=== PATIENT | female | born 2005 | race Caucasian/White ===

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

== ENCOUNTER 2023-04-22 14:47 | Emergency (ER) | payer BC, MEDICAID, SELFPAY ==
--- NOTE | ~2023-04-22 | XR_ITS ---
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 RESULT: Lines, tubes, and devices: None. Lungs and pleura: Clear. Cardiomediastinal silhouette: Stable. Other: No acute osseous or upper abdominal finding. IMPRESSION: No acute cardiopulmonary process. Reviewed, dictated and finalized at location K. [employer]
[2023-04-22 14:51] VITALS: BP 143/79; PULSE 136; RESP 20; TEMP 37.9; O2SAT 96
[2023-04-22 15:44] LABS: Influenza A QL RT-PCR Negative (Negative); Influenza B QL RT-PCR Positive (Negative); RSV RNA, RT-PCR Negative (Negative); SARS-CoV-2 RNA PCR Negative (Negative)
--- NOTE | 2023-04-22 15:50 | ED.URI ---
HPI - URI/Sore Throat General Chief Complaint: Upper Respiratory Infection Stated Complaint: uri Time Seen by Provider: 04/22/23 15:48 Source: patient Mode of arrival: ambulatory Limitations: no limitations History of Present Illness HPI Narrative: 17 years old white female drove herself to the emergency room complaining of cold symptoms started yesterday including runny nose, coughing, sore throat. Related Data Home Medications Medication Instructions Recorded Confirmed propranolol 10 mg tablet 06/28/20 dicyclomine 20 mg tablet mg 12/16/20 ondansetron 4 mg disintegrating 12/16/20 tablet Allergies Allergy/AdvReac Type Severity Reaction Status Date / Time No Known Allergies Allergy Verified 04/22/23 16:08 Review of Systems Review of Systems: All systems reviewed & are unremarkable except as noted in HPI and below PMFSH Past Medical History Medical History Depression Nonalcoholic fatty liver disease PTSD (post-traumatic stress disorder) Surgical History Surgical History History of removal of ovarian cyst Social History Social History Smoking status: Never smoker Alcohol intake: unknown Substance use: unknown Substance use type: does not use Gender identity (if verbalized by the patient): Female Spiritual care concerns: No Exam Narrative: General appearance: Well-developed, well-nourished Skin: Normal color Head: Normocephalic, nontraumatic Eyes: Clear conjunctiva ENT: Oropharynx erythema Neck: Supple, nontender Chest and respiratory: Airway patent, no respiratory distress, no accessory muscle use Heart: Tachycardia Abdomen: Soft, nontender, no organomegaly, quiet bowel sounds Vascular: Normal peripheral pulses, normal capillary refill. Musculoskeletal: Normal range of motion, nontender back Neurologic: Alert and oriented ?3, [facility] [employer] is normal as tested, no gross motor deficit Course Vital Signs Vital signs: Vital Signs Temperature 37.9 C H 04/22/23 14:51 Pulse Rate 136 H 04/22/23 14:51 Respiratory Rate 20 04/22/23 14:51 Blood Pressure 143/79 H 04/22/23 14:51 Pulse Oximetry 96 04/22/23 14:51 Oxygen Delivery Room Air 04/22/23 14:51 Temperature 37.9 C H 04/22/23 14:51 Pulse Rate 132 H 04/22/23 16:05 Respiratory Rate 26 H 04/22/23 16:05 Blood Pressure 113/68 04/22/23 16:05 Pulse Oximetry 95 04/22/23 16:06 Oxygen Delivery Room Air 04/22/23 16:06 MDM - URI/Sore Throat MDM Narrative Medical decision making narrative: Patient presents with cold symptoms, tested positive for influenza B, Tamiflu ordered The ED patient received ibuprofen and Tylenol prior to discharge and 3 days excuse of work Differential Diagnosis Differential diagnosis: Likely upper respiratory infection, viral infection, influenza and pharyngitis Lab Data Labs: Lab Results 04/22/23 Range/Units 14:56 Influenza A (RT-PCR) Negative (Negative) Influenza B (RT-PCR) Positive A (Negative) RSV (RT-PCR) Negative (Negative) SARS-CoV-2 RNA (RT-PCR) Negative (Negative) Discharge Plan Discharge Clinical Impression: Influenza B Patient Disposition: Home, Self-Care Condition: Stable Instructions: Influenza (ED) Additional Instructions: Return if symptoms are worsening , call your family physician for appointment, take Tylenol as as needed for aches and pain, continue home medications. Off work 3 days Prescriptions: New oseltamivir [Tamiflu] 75 mg capsule 75 mg PO Q12H 5 Days Qty: 10
[2023-04-22 16:05] VITALS: BP 113/68; PULSE 132; RESP 26; O2SAT 95
[2023-04-22 16:06] VITALS: O2SAT 95
[2023-04-22] MEDS: ACETAMINOPHEN 325 MG TABLET 650 MG PO (16:23)
[2023-04-22] MEDS: IBUPROFEN 600 MG TABLET PO (16:23)
== END 2023-04-22 17:01 | disposition home or self-care (01) ==
PROVIDERS: Emergency Medicine; Emergency Provider Emergency Medicine; PCP Family Medicine Sports Medicine
DX: J10.1 Influenza due to other identified influenza virus with other respiratory manifestations (principal); Z20.822 Contact with and (suspected) exposure to COVID-19; F32.A Depression, unspecified
CPT/HCPCS: 71045; 87637; 99283; A9270

== ENCOUNTER 2023-07-19 07:04 | Emergency (ER) | payer BC, MEDICAID, SELFPAY ==
[2023-07-19 07:06] VITALS: BP 150/102; PULSE 96; RESP 16; TEMP 36.2; O2SAT 100
[2023-07-19 07:17] VITALS: BP 138/100; PULSE 94; RESP 20; O2SAT 98
[2023-07-19 07:29] LABS: Basophils Percent Auto 0.2 % (0.2-1.2); Eosinophils Absolute Auto 0.2 K/mm3 (0-0.3); Eosinophils Percent Auto 1.7 % (0-4.4); Hematocrit 44.2 % (37.0-47.0); Hemoglobin 15.3 g/dL (12.0-15.0); Immature Granulocyte Absolute 0.04 K/mm3 (0.00-0.031); Immature Granulocyte Percent A 0.3 % (0-0.5); Lymphocytes Absolute Auto 2.93 K/mm3 (0.9-3.2); Lymphocytes Percent Auto 22.6 % (18.3-44.2); Mean Corpuscular HGB Conc 34.6 g/dl (32-36); Mean Corpuscular Hemoglobin 30.6 pg (26-34); Mean Corpuscular Volume 88.4 fl (80-100); Mean Platelet Volume 9.6 fl (7.4-10.4); Monocytes Percent Auto 7.6 % (2.6-8.5); Neutrophils Absolute Auto 8.7 K/mm3 (1.3-6.7); Neutrophils Percent Auto 67.6 % (45.5-73.1); Platelet Count Result 369 k/mm3 (150-375); Red Cell Distribution Width 12.5 % (11.5-14.5); White Blood Count 12.9 K/mm3 (4.5-10.0)
[2023-07-19] MEDS: SODIUM CHLORIDE 0.9% IV 1,000 ML 999 ML IV CONT (07:32)
[2023-07-19] MEDS: ONDANSETRON INJ 4 MG/2 ML VIAL IV PUSH (07:32)
[2023-07-19 07:42] LABS: Alanine Aminotransferase 61 U/L (6-35); Albumin Level 4.8 g/dL (3.5-5.1); Alkaline Phosphatase 52 U/L (38-126); Anion Gap 8 mmol/L (4-12); Aspartate Amino Transferase 48 U/L (14-36); Blood Urea Nitrogen 12 mg/dL (7-17); Calcium 9.6 mg/dL (8.4-10.2); Carbon Dioxide 23 mmol/L (22-30); Chloride 105 mmol/L (98-107); Estimated CRCL calculation 140 ml/min; Estimated Glomerular Filt Rate > 60; Glucose 110 mg/dL (65-110); Lipase 114 U/L (23-300); Potassium 4.3 mmol/L (3.4-5.0); Sodium 136 mmol/L (137-145)
--- NOTE | 2023-07-19 07:42 | ED.ABDPAIN ---
HPI - Abdominal Pain General Chief Complaint: Abdominal Pain Stated Complaint: stomach pain Time Seen by Provider: 07/19/23 07:08 History of Present Illness HPI narrative: 18-year-old female presenting to the emergency department for evaluation abdominal pain. Patient does report frequent nausea and vomiting. Patient felt that the vomiting has worsened over the course of the last week. Patient states that she does have Zofran at home this is not helping. Patient does have history PTSD, depression. Patient does admit to some infrequent marijuana use. Related Data Home Medications Medication Instructions Recorded Confirmed propranolol 10 mg tablet 06/28/20 dicyclomine 20 mg tablet mg 12/16/20 ondansetron 4 mg disintegrating 12/16/20 tablet Allergies Allergy/AdvReac Type Severity Reaction Status Date / Time No Known Allergies Allergy Verified 07/19/23 07:11 Review of Systems Review of Systems: All systems reviewed & are unremarkable except as noted in HPI and below PMFSH Past Medical History Medical History Depression Nonalcoholic fatty liver disease PTSD (post-traumatic stress disorder) Surgical History Surgical History History of removal of ovarian cyst Social History Social History Smoking status: Never smoker Alcohol intake: unknown Substance use: unknown Substance use type: does not use Gender identity (if verbalized by the patient): Female Spiritual care concerns: No Exam Narrative: APPEARANCE: Well appearing, no pain, no distress, well-nourished. HEAD: normocephalic, atraumatic. EYES: PERRLA/EOMI, conjunctivae clear. NOSE: Normal no drainage EARS:TMS clear with good light reflex. THROAT: Pharynx clear, no exudate. NECK: Supple. No adenopathy, no masses. RESPIRATORY: Airway patent, respirations nonlabored. Clear to auscultation bilaterally, no rales, rhonchi, wheezing. CARDIOVASCULAR: Regular rate and rhythm without murmurs rubs or gallops. ABDOMINAL: Soft, nontender, nondistended, normal bowel sounds MUSCULOSKELETAL: Moves all extremities. Strength/ROM intact, No edema, No calf tenderness. NEURO: Alert. Cranial nerves II through XII intact. Grossly intact SKIN: Warm, dry. Normal Color Course Course Emergency Course: Patient felt improved with treatment and patient was discharged to home Vital Signs Vital signs: Vital Signs Temperature 97.2 F L 07/19/23 07:06 Pulse Rate 96 07/19/23 07:06 Respiratory Rate 16 07/19/23 07:06 Blood Pressure 150/102 H 07/19/23 07:06 Pulse Oximetry 100 07/19/23 07:06 Oxygen Delivery Room Air 07/19/23 07:06 Temperature 97.2 F L 07/19/23 07:06 Pulse Rate 84 07/19/23 09:03 Respiratory Rate 18 07/19/23 09:03 Blood Pressure 111/57 L 07/19/23 09:03 Pulse Oximetry 99 07/19/23 09:03 Oxygen Delivery Room Air 07/19/23 07:06 MDM - Abdominal Pain MDM Narrative Medical decision making narrative: 18-year-old female present to the emergency department for evaluation for persistent nausea and vomiting. Patient had no emesis in the emergency department. Patient is afebrile with a minor leukocytosis of 12.9 and stable hemoglobin of 15.3 no acute abnormalities on the patient's CMP. Patient was treated with IV fluids and Zofran and patient states that her symptoms have resolved. Patient does have a prescription for Zofran at home. Patient will be provided follow-up with GI. Patient was once again encouraged to refrain from THC use for the possibility of cannabinoid hyperemesis syndrome. All questions concerns were addressed patient was well-appearing at time of discharge. Differential Diagnosis Differential diagnosis: Likely abdominal pain, acute appendicitis, gastroenteritis and other Lab Data Attestation: I reviewed the patient's lab results. 0
[2023-07-19] MEDS: PANTOPRAZOLE SODIUM IV 40 MG VIAL IV PUSH (08:11)
[2023-07-19 09:03] VITALS: BP 111/57; PULSE 84; RESP 18; O2SAT 99
[2023-07-19 09:19] LABS: Appearance Urine Clear (Clear); Bacteria Urine None Seen /hpf; Bilirubin Urine Negative (Negative); Blood Urine Negative (Negative); Calcium Oxalate Crystals Urine Present /hpf; Color Urine Dark Yellow (Yellow); Glucose Urine UA Negative (Negative); Ketones Urine Trace mg/dL (Negative); Leukocyte Esterase Ur Negative LEU/UL (Negative); Need Manual Microscopic Reviewed; Nitrate Urine Negative (Negative); Non Pathogenic Casts 0-2; Protein Urine Trace mg/dL (Negative); Specific Grav Ur 1.029 (1.001-1.035); Squamous Epithelial Cell Urine Occasional /hpf (Few); Urobilinogen Urine 0.2 mg/dL (<2.0); WBC Urine 0-5 /hpf (0-3); pH Urine 5.5 (5.0-9.0)
[2023-07-19 09:21] LABS: Add Urine Microscopic? YES
== END 2023-07-19 09:50 | disposition home or self-care (01) ==
PROVIDERS: Emergency Provider Emergency Medicine; PCP Family Medicine Sports Medicine
DX: R11.2 Nausea with vomiting, unspecified (principal)
CPT/HCPCS: 36415; 80053; 81001; 81025; 83690; 85025; 96361; 96374; 96375; 99284; C9113; J2405; J7030

== ENCOUNTER 2023-10-09 14:19 | Emergency (ER) | payer BC, SELFPAY ==
--- NOTE | ~2023-10-09 | CT_ITS ---
EXAMINATION: CT abdomen pelvis w con DATE: 10/09/2023 16:06 INDICATION: LQ pain TECHNIQUE: Computed tomography (CT) of the abdomen and pelvis was performed with 100 mL Omnipaque-350 intravenous contrast. Automated exposure control and iterative reconstruction technique were employe d. The dose-length product was 1598.99 mGy-cm. COMPARISON: 10/14/2022. FINDINGS: Lower thorax: Unremarkable Liver: Normal. Biliary/Gallbladder: Gallbladder is normal. No bile duct dilation. Pancreas: No mass or duct dilation. Spleen: Normal. Adrenals:No mass. Kidneys: Mild right hydronephrosis. Delayed right nephrogram. Punctate nonobstructing right midpole c alcification. Normal left kidney. GI tract: No small or large bowel dilation. Normal appendix. Mesentery/Peritoneum: No ascites, mass, or free air. Retroperitoneum: No mass. Pelvis: 2 mm calcification in the distal right ureter. Normal urinary bladder, uterus, and ovaries. 2 .3 simple left ovarian cyst which requires no additional evaluation. Soft Tissues: Soft tissues and body wall unremarkable. Bones: No acute osseous finding. IMPRESSION: 2 mm distal right ureteral stone causing mild obstructive uropathy. Reviewed, dictated and finalized at location K.
[2023-10-09 14:28] VITALS: BP 157/103; PULSE 63; RESP 20; TEMP 36.7; O2SAT 99
[2023-10-09 15:15] LABS: Basophils Absolute Auto 0.1 K/mm3 (0.0-0.1); Basophils Percent Auto 0.5 % (0.2-1.2); Eosinophils Absolute Auto 0.1 K/mm3 (0-0.3); Eosinophils Percent Auto 1.3 % (0-4.4); Hematocrit 40.1 % (37.0-47.0); Hemoglobin 13.5 g/dL (12.0-15.0); Immature Granulocyte Absolute 0.04 K/mm3 (0.00-0.031); Immature Granulocyte Percent A 0.4 % (0-0.5); Lymphocytes Absolute Auto 2.19 K/mm3 (0.9-3.2); Lymphocytes Percent Auto 22.6 % (18.3-44.2); Mean Corpuscular HGB Conc 33.7 g/dl (32-36); Mean Corpuscular Hemoglobin 30.5 pg (26-34); Mean Corpuscular Volume 90.7 fl (80-100); Mean Platelet Volume 10.1 fl (7.4-10.4); Monocytes Absolute Auto 0.6 K/mm3 (0.1-0.6); Monocytes Percent Auto 6.2 % (2.6-8.5); Neutrophils Absolute Auto 6.7 K/mm3 (1.3-6.7); Platelet Count Result 323 k/mm3 (150-375); Red Blood Count 4.42 M/mm3 (4.2-5.4); Red Cell Distribution Width 12.2 % (11.5-14.5); White Blood Count 9.7 K/mm3 (4.5-10.0)
[2023-10-09 15:26] LABS: Alanine Aminotransferase 53 U/L (6-35); Albumin Level 4.6 g/dL (3.5-5.1); Alkaline Phosphatase 60 U/L (38-126); Anion Gap 8 mmol/L (4-12); Aspartate Amino Transferase 39 U/L (14-36); Bilirubin,Total 0.9 mg/dL (0.2-1.3); Blood Urea Nitrogen 7 mg/dL (7-17); Calcium 9.2 mg/dL (8.4-10.2); Carbon Dioxide 25 mmol/L (22-30); Chloride 107 mmol/L (98-107); Estimated CRCL calculation 125 ml/min; Estimated Glomerular Filt Rate > 60; Glucose 132 mg/dL (65-110); Lipase 92 U/L (23-300); Potassium 3.5 mmol/L (3.4-5.0); Sodium 140 mmol/L (137-145)
[2023-10-09 15:42] LABS: Beta HCG Quantitative < 2.39 mIU/ML
[2023-10-09 16:14] VITALS: BP 144/85; PULSE 100; RESP 17; O2SAT 95
--- NOTE | 2023-10-09 16:36 | ED.ABDPAIN ---
HPI - Abdominal Pain General Chief Complaint: Abdominal Pain Stated Complaint: ABD PAIN Time Seen by Provider: 10/09/23 16:24 History of Present Illness HPI narrative: Patient is a 18-year-old female who presents to the emergency department this evening complaining of sudden onset sharp severe right lower quadrant abdominal pain. Patient states that the pain is a 10/10 and is currently screaming and restless, refusing to answer any of our questions. Related Data Home Medications Medication Instructions Recorded Confirmed propranolol 10 mg tablet 06/28/20 dicyclomine 20 mg tablet mg 12/16/20 ondansetron 4 mg disintegrating 12/16/20 tablet Allergies Allergy/AdvReac Type Severity Reaction Status Date / Time No Known Allergies Allergy Verified 07/19/23 07:11 Review of Systems Review of Systems: All systems are reviewed and are negative unless stated otherwise in the HPI. FORMERLY [facility] Past Medical History Medical History Depression Nonalcoholic fatty liver disease PTSD (post-traumatic stress disorder) Surgical History Surgical History History of removal of ovarian cyst Social History Social History Smoking status: Never smoker Alcohol intake: unknown Substance use: unknown Substance use type: does not use Gender identity (if verbalized by the patient): Female Spiritual care concerns: No Exam Narrative: General: Alert, awake, afebrile, screaming in pain, restless, uncooperative with exam. HEENT: PERRL, no rhinorrhea, no post nasal drip, oropharynx clear. Cardiovascular: Regular rate and rhythm, no murmurs, rubs or gallops, no peripheral edema. Respiratory: Clear to auscultation bilaterally, no tachypnea, no wheezing, no rhonchi, no rubs, no respiratory distress. Abdomen: Soft, nontender, nondistended, no rebound, no guarding, no peritoneal signs. Musculoskeletal: No joint swelling or deformity, normal muscle tone. Skin: No rashes or petechia, no signs of infection.. Neurological: Alert and oriented to person, place, and time. Follows all commands. No focal deficits, speech is clear and fluent. Course Vital Signs Vital signs: Vital Signs Temperature 98.0 F 10/09/23 14:28 Pulse Rate 63 10/09/23 14:28 Respiratory Rate 20 10/09/23 14:28 Blood Pressure 157/103 H 10/09/23 14:28 Pulse Oximetry 99 10/09/23 14:28 Oxygen Delivery Room Air 10/09/23 14:28 Temperature 98.0 F 10/09/23 14:28 Pulse Rate 82 10/09/23 17:16 Respiratory Rate 16 10/09/23 17:16 Blood Pressure 144/86 H 10/09/23 17:16 Pulse Oximetry 97 10/09/23 17:16 Oxygen Delivery Room Air 10/09/23 14:28 MDM - Abdominal Pain MDM Narrative Medical decision making narrative: The patient was evaluated by myself in the emergency department. History is obtained from patient who is an independent historian and physical exam was performed. External medical records were reviewed at this time. IV was established and pertinent tests were ordered. Patient was administered 8 mg of IV morphine and 4 mg IV Zofran by EMS prior to arrival which patient states has not touch her pain. Laboratory results obtained revealing no acute process. Patient refusing to provide us with a urine sample at this time. Imaging studies obtained included CT abdomen and pelvis with IV contrast which was independently interpreted by me revealing a 2 mm right distal ureteral stone, which is pending final radiology interpretation. Differential diagnosis considerations include ovarian torsion, kidney stones, and appendicitis. Comorbidities impacting this visit include none. I have evaluated and discussed social determinants of health with the patient that could potentially impact subsequent diagnosis and treatment plans. On repeat assessment of
[2023-10-09] MEDS: fentaNYL CITRATE INJ (*CRX) 100 MCG/2 ML VIAL 25 MCG IV PUSH (16:42)
[2023-10-09 17:16] VITALS: BP 144/86; PULSE 82; RESP 16; O2SAT 97
== END 2023-10-09 17:17 | disposition home or self-care (01) ==
PROVIDERS: Emergency Provider Emergency Medicine; PCP Family Medicine Sports Medicine
DX: N13.2 Hydronephrosis with renal and ureteral calculous obstruction (principal); K76.0 Fatty (change of) liver, not elsewhere classified
CPT/HCPCS: 36415; 74177; 80053; 83690; 84702; 85025; 96374; 99284; J3010; Q9967

== ENCOUNTER 2023-10-12 16:32 | Emergency (ER) | payer BC, SELFPAY ==
--- NOTE | ~2023-10-12 | CT_ITS ---
EXAMINATION: CT abdomen pelvis w con DATE: 10/12/2023 18:01 INDICATION: Right lower quadrant abdominal pain. TECHNIQUE: Computed tomography (CT) of the abdomen and pelvis was performed with 100 mL Omnipaque 350 intravenous contrast. Automated exposure control and iterative reconstruction technique were employe d. The dose-length product was 1467.05 mGy-cm. COMPARISON: CT abdomen and pelvis 10/09/2023 FINDINGS: The visualized portions of the lung bases are clear without pneumonia or pleural effusion. The heart size is normal. No pericardial effusion. The liver, gallbladder, spleen, pancreas, adrenal glands, and left kidney are normal. There is a 1 mm stone in right kidney. There is a delayed right-s ided contrast nephrogram. There is mild hydronephrosis and hydroureter. There is a 2 mm stone in dist al right ureter. There are no dilated loops of bowel. The appendix is normal. There is no ascites. Th ere are no pathologically enlarged lymph nodes. There is mild thoracic spondylosis. IMPRESSION: 1. 2 mm stone in the distal right ureter with mild right hydronephrosis and hydroureter. 2. 1 mm nonobstructing right kidney stone. Reviewed, dictated and finalized at location E. IMPRESSION: 1. 2 mm stone in the distal right ureter with mild right hydronephrosis and hyd roureter. 2. 1 mm nonobstructing right kidney stone.
[2023-10-12 16:40] VITALS: BP 157/86; PULSE 75; RESP 20; TEMP 37; O2SAT 99
[2023-10-12 16:47] VITALS: BP 168/114; PULSE 63; RESP 16; TEMP 36.5; O2SAT 100
[2023-10-12 17:28] LABS: Basophils Absolute Auto 0.1 K/mm3 (0.0-0.1); Basophils Percent Auto 0.5 % (0.2-1.2); Eosinophils Absolute Auto 0.2 K/mm3 (0-0.3); Eosinophils Percent Auto 1.8 % (0-4.4); Hematocrit 39.7 % (37.0-47.0); Hemoglobin 13.9 g/dL (12.0-15.0); Immature Granulocyte Absolute 0.05 K/mm3 (0.00-0.031); Immature Granulocyte Percent A 0.5 % (0-0.5); Lymphocytes Percent Auto 21.7 % (18.3-44.2); Mean Corpuscular Hemoglobin 30.6 pg (26-34); Mean Corpuscular Volume 87.4 fl (80-100); Mean Platelet Volume 10.3 fl (7.4-10.4); Monocytes Absolute Auto 0.9 K/mm3 (0.1-0.6); Monocytes Percent Auto 8.5 % (2.6-8.5); Neutrophils Absolute Auto 7.4 K/mm3 (1.3-6.7); Platelet Count Result 361 k/mm3 (150-375); Red Blood Count 4.54 M/mm3 (4.2-5.4); Red Cell Distribution Width 12.3 % (11.5-14.5)
[2023-10-12 17:39] LABS: Alanine Aminotransferase 62 U/L (6-35); Albumin Level 4.9 g/dL (3.5-5.1); Alkaline Phosphatase 61 U/L (38-126); Anion Gap 11 mmol/L (4-12); Aspartate Amino Transferase 51 U/L (14-36); Bilirubin,Total 1.1 mg/dL (0.2-1.3); Blood Urea Nitrogen 10 mg/dL (7-17); Calcium 9.4 mg/dL (8.4-10.2); Carbon Dioxide 24 mmol/L (22-30); Chloride 107 mmol/L (98-107); Estimated Glomerular Filt Rate > 60; Glucose 99 mg/dL (65-110); Potassium 3.8 mmol/L (3.4-5.0); Sodium 142 mmol/L (137-145)
[2023-10-12 17:46] LABS: Appearance Urine Cloudy (Clear); Bacteria Urine 1+ /hpf; Bilirubin Urine 1+ (Negative); Blood Urine 3+ (Negative); Calcium Oxalate Crystals Urine Present /hpf; Color Urine Dark Yellow (Yellow); Glucose Urine UA Negative (Negative); Ketones Urine 1+ mg/dL (Negative); Leukocyte Esterase Ur Negative LEU/UL (Negative); Mucus Urine Present /lpf; Need Manual Microscopic Reviewed; Nitrate Urine Negative (Negative); Non Pathogenic Casts 0-2; Protein Urine 1+ mg/dL (Negative); RBC Urine >100 /hpf (0-2); Specific Grav Ur 1.033 (1.001-1.035); Squamous Epithelial Cell Urine Few /hpf (Few); WBC Urine 0-5 /hpf (0-3)
[2023-10-12 17:47] LABS: Add Urine Microscopic? YES
[2023-10-12] MEDS: ONDANSETRON INJ 4 MG/2 ML VIAL IV PUSH (18:23)
[2023-10-12] MEDS: KETOROLAC 15 MG/ML VIAL (*BKC) IV PUSH (18:23)
[2023-10-12] MEDS: SODIUM CHLORIDE 0.9% IV 1,000 ML 999 ML IV CONT ×2 (18:52→19:29)
--- NOTE | 2023-10-12 18:56 | ED.ABDPAIN ---
HPI - Abdominal Pain General Chief Complaint: Abdominal Pain Stated Complaint: kidney stone Time Seen by Provider: 10/12/23 17:04 History of Present Illness HPI narrative: Patient is a 18-year-old female who presents to the emergency department this afternoon complaining of right lower quadrant abdominal pain. Patient states that she was seen here 3 days ago for same pain and was diagnosed with a 2 mm kidney stone. Patient states that although she is taking the medications at home which have been helping a little bit, she continues to have pain. Patient also states that she has been nauseous and had had a few vomiting episodes. She denies any fevers or chills at home, and denies any dysuria. No additional symptoms or concerns at this time. Related Data Home Medications Medication Instructions Recorded Confirmed propranolol 10 mg tablet 06/28/20 dicyclomine 20 mg tablet mg 12/16/20 ondansetron 4 mg disintegrating 12/16/20 tablet Allergies Allergy/AdvReac Type Severity Reaction Status Date / Time No Known Allergies Allergy Verified 07/19/23 07:11 Review of Systems Review of Systems: All systems are reviewed and are negative unless stated otherwise in the HPI. [facility] Past Medical History Medical History Depression Nonalcoholic fatty liver disease PTSD (post-traumatic stress disorder) Surgical History Surgical History History of removal of ovarian cyst Social History Social History Smoking status: Never smoker Alcohol intake: unknown Substance use: unknown Substance use type: does not use Gender identity (if verbalized by the patient): Female Spiritual care concerns: No Exam Narrative: General: Alert, awake, afebrile, in no acute distress. HEENT: PERRL, no rhinorrhea, no post nasal drip, oropharynx clear. Cardiovascular: Regular rate and rhythm, no murmurs, rubs or gallops, no peripheral edema. Respiratory: Clear to auscultation bilaterally, no tachypnea, no wheezing, no rhonchi, no rubs, no respiratory distress. Abdomen: Soft, nontender, nondistended, no rebound, no guarding, no peritoneal signs. Musculoskeletal: No joint swelling or deformity, normal muscle tone. Skin: No rashes or petechia, no signs of infection. Neurological: Alert and oriented to person, place, and time. Follows all commands. No focal deficits, speech is clear and fluent. Course Vital Signs Vital signs: Vital Signs Temperature 98.6 F 10/12/23 16:40 Pulse Rate 75 10/12/23 16:40 Respiratory Rate 20 10/12/23 16:40 Blood Pressure 157/86 H 10/12/23 16:40 Pulse Oximetry 99 10/12/23 16:40 Temperature 97.7 F 10/12/23 16:47 Pulse Rate 71 10/12/23 19:31 Respiratory Rate 14 10/12/23 19:31 Blood Pressure 120/70 10/12/23 19:31 Pulse Oximetry 99 10/12/23 19:31 MDM - Abdominal Pain MDM Narrative Medical decision making narrative: The patient was evaluated by myself in the emergency department. History is obtained from patient who is an independent historian and physical exam was performed. External medical records were reviewed at this time. IV was established and pertinent tests were ordered. Patient was administered 15 mg of IV Toradol, 4 mg IV Zofran and 2 L IV fluid bolus with normal saline. Laboratory results obtained revealing no acute process. Urinalysis revealed 1+ ketones, 3+ blood and greater than 100 rbc's and 1+ bacteria. Imaging studies obtained included CT abdomen pelvis with IV contrast which was independently interpreted by me revealing a 2 mm distal ureter stone, which is pending final radiology interpretation. Differential diagnosis considerations include septic stone, pyelonephritis and urinary tract infection. Comorbidities impacting this visit include none. I have aspen
[2023-10-12 19:31] VITALS: BP 120/70; PULSE 71; RESP 14; O2SAT 99
[2023-10-12 21:00] VITALS: RESP 18
== END 2023-10-12 21:20 | disposition home or self-care (01) ==
PROVIDERS: Emergency Provider Emergency Medicine; PCP Family Medicine Sports Medicine
DX: N13.2 Hydronephrosis with renal and ureteral calculous obstruction (principal)
CPT/HCPCS: 36415; 74177; 80053; 81001; 81025; 85025; 96361; 96374; 96375; 99284; J1885; J2405; J7030; Q9967

== ENCOUNTER 2023-12-10 14:39 | Emergency (ER) | payer BC, SELFPAY ==
--- NOTE | ~2023-12-10 | XR_ITS ---
EXAMINATION: XR ankle LT min 3V DATE: 12/10/2023 15:09 INDICATION: Lateral left ankle pain TECHNIQUE: Anteroposterior, oblique, mortise, and lateral views of the left ankle were obtained. COMPARISON: None. FINDINGS: Alignment is normal. No fracture. Joint spaces are well maintained. No ankle joint effusion. Small Achilles and plantar calcaneal spurs. The soft tissues are unremarkable. IMPRESSION: 1. No acute osseous abnormality. Reviewed, dictated and finalized at location A.
[2023-12-10 14:40] VITALS: BP 138/81; PULSE 80; RESP 16; TEMP 36.6; O2SAT 100
[2023-12-10 14:45] VITALS: BP 152/97; PULSE 89; RESP 20; TEMP 36.4; O2SAT 98
--- NOTE | 2023-12-10 14:47 | ED.LOWEXIN ---
HPI - Extremity Injury (Lower) General Chief Complaint: Extremity Injury, Lower Stated Complaint: left ankle injury Time Seen by Provider: 12/10/23 14:47 History of Present Illness HPI Narrative: 18-year-old Morbidly obese female presents emergency room for evaluation of left foot and ankle pain has been present for over 2 months. Denies any known injury or trauma. Patient states she is on her feet majority of the day her place of employment. states she has taken Tylenol with no improvement of her symptoms. Related Data Home Medications Medication Instructions Recorded Confirmed propranolol 10 mg tablet 06/28/20 dicyclomine 20 mg tablet mg 12/16/20 ondansetron 4 mg disintegrating 12/16/20 tablet Allergies Allergy/AdvReac Type Severity Reaction Status Date / Time No Known Allergies Allergy Verified 12/10/23 14:43 Review of Systems Review of Systems: ROS unremarkable except for noted in HPI PMFSH Past Medical History Medical History Depression Nonalcoholic fatty liver disease PTSD (post-traumatic stress disorder) Surgical History Surgical History History of removal of ovarian cyst Social History Social History Smoking status: Never smoker Alcohol intake: unknown Substance use: unknown Substance use type: does not use Gender identity (if verbalized by the patient): Female Spiritual care concerns: No Exam Narrative: GENERAL: Well-appearing, well-nourished, morbidly obese, no physical limitations, and in no acute distress. HEAD: Normocephalic, atraumatic. EYES: Conjunctivae normal, PERRLA and EOMI. CHEST: Clear to auscultation. No respiratory distress. No wheezes rales or rhonchi. HEART: Regular rate and rhythm. No murmur heard. Normal peripheral pulses. EXTREMITIES: left foot: TTP to lateral surface that extends to the achilles. No bony tenderness. pain with heel lift SKIN: Warm, dry, no rash. No noted wounds NEURO: No focal deficits. Alert and oriented x3. MAEW. CN's II-XI intact bilaterally, normal gait PSYCH: Cooperative. Normal mood and affect. Course Vital Signs Vital signs: Vital Signs Temperature 36.6 C 12/10/23 14:40 Pulse Rate 80 12/10/23 14:40 Respiratory Rate 16 12/10/23 14:40 Blood Pressure 138/81 12/10/23 14:40 Pulse Oximetry 100 12/10/23 14:40 Oxygen Delivery Room Air 12/10/23 14:40 Temperature 36.6 C 12/10/23 14:40 Pulse Rate 80 12/10/23 14:40 Respiratory Rate 16 12/10/23 14:40 Blood Pressure 138/81 12/10/23 14:40 Pulse Oximetry 100 12/10/23 14:40 Oxygen Delivery Room Air 12/10/23 14:40 Discharge Plan Discharge Clinical Impression: Posterior tibial tendinitis Patient Disposition: Home, Self-Care Condition: Stable Instructions: Antibiotic Form, Tendinitis (ED) Prescriptions: New naproxen 500 mg tablet 500 mg PO BID Qty: 30 0RF No Action ondansetron 4 mg tablet,disintegrating 4 mg PO Q8H PRN (Reason: nausea and vomiting) Qty: 10 0RF propranolol 10 mg tablet dicyclomine 20 mg tablet ondansetron 4 mg tablet,disintegrating promethazine 25 mg tablet 25 mg PO TID PRN (Reason: nausea and vomiting) Qty: 14 0RF lansoprazole 15 mg capsule,delayed release(DR/EC) 15 mg PO DAILY Qty: 14 0RF ondansetron 4 mg tablet,disintegrating 4 mg PO Q8H PRN (Reason: nausea and vomiting) Qty: 12 0RF dicyclomine 20 mg tablet 20 mg PO TID PRN (Reason: cramping) Qty: 15 0RF cephalexin 500 mg capsule 500 mg PO Q12H 7 Days Qty: 14 0RF oseltamivir [Tamiflu] 75 mg capsule 75 mg PO Q12H 5 Days Qty: 10 0RF benzonatate 200 mg capsule 200 mg PO TID Qty: 21 0RF hydrocodone-acetaminophen 5-325 mg tablet 1 tablet PO Q6H PRN (Reason: pain) Qty: 10
== END 2023-12-10 15:43 | disposition home or self-care (01) ==
PROVIDERS: Emergency Provider Nurse Practitioner Family; PCP Family Medicine Sports Medicine
DX: K76.0 Fatty (change of) liver, not elsewhere classified (principal); M76.822 Posterior tibial tendinitis, left leg; E66.01 Morbid (severe) obesity due to excess calories; Z68.41 Body mass index [BMI] 40.0-44.9, adult
CPT/HCPCS: 73610; 99283